=== PATIENT | female | born 1970 | race Caucasian/White ===

== ENCOUNTER 2021-04-25 21:16 | Emergency (ER) | payer MEDICAID, SELFPAY ==
--- NOTE | ~2021-04-25 | US_ITS ---
EXAMINATION: US PELVIS CLINICAL INFORMATION: Abnormal CT. COMPARISON: CT from 04/25/2021 TECHNIQUE: Ultrasound of the pelvis is performed using both transabdominal and transvaginal transducers along with Doppler. Transvaginal imaging is performed due to inadequate visualization transabdominally. FINDINGS: Uterus: The uterus is anteverted and measures 10 x 7 x 7.2 x 7.6 cm. Multiple nabothian cysts at the cervix. The double wall endometrial thickness is 2.2 mm. The uterus is smooth in contour and has normal myometrial echogenicity. Small fibroids are noted at the uterine body measuring up to 1.6 cm. Adnexa: Both ovaries are visualized. There is normal color flow to the adnexa. There is no ovarian torsion. There is no pelvic ascites or fluid collection. Normal arterial and venous spectral waveforms are present. Right ovary measures 4.2 x 2.4 x 3.2 cm. Small echogenic focus noted which represent calcification. Left ovary measures 9.1 x 4 x 4.5 cm. Multiple components are seen in the left ovary. There is a solid area which appears soft tissue echogenicity measuring 4.9 x 3 x 2.6 cm. This has Doppler vascularity. Multiple follicles present with dominant follicle measuring 2.4 cm. US/US pelvic and transvaginal IMPRESSION: Solid-appearing left adnexal mass measuring 4.9 cm. Recommend further evaluation with MRI.
--- NOTE | ~2021-04-25 | CT_ITS ---
EXAMINATION: CT ABDOMEN AND PELVIS WITHOUT CONTRAST CLINICAL INFORMATION: Abdominal pain. Rule out perforated viscus. COMPARISON: 05/28/2017 TECHNIQUE: Multidetector volumetric imaging was performed from the superior aspect of the liver through the pubic symphysis. Sagittal and coronal reformatted images were obtained on the technologist's workstation. This CT examination was performed using dose optimization techniques as appropriate, variously including the following: *Automated exposure control *Adjustment of mA and/or kV according to patient size (this includes techniques or standardized protocols for targeted exams where dose is matched to indication/reason for exam; i.e. extremities or head) *Use of iterative reconstruction technique DLP: 923 mGy-cm FINDINGS: LUNG BASES: The lung bases are clear. Mitral calcification noted. LIVER, GALLBLADDER, AND BILIARY TREE: The liver is enlarged measuring 22 cm CC. The liver is normal in shape and attenuation. No biliary ductal dilatation. Multiple calcifications throughout the liver. Numerous hepatic cysts are again noted.. Cholecystectomy. PANCREAS: Unremarkable. SPLEEN: Unremarkable. ADRENAL GLANDS: Unremarkable. KIDNEYS AND URETERS: The kidneys are surgically absent. BLADDER: Decompressed and not well evaluated. GASTROINTESTINAL TRACT: The stomach is unremarkable. Normal caliber small bowel. There is no obstruction. Normal appendix. No colonic wall thickening or inflammatory change. No free air or free fluid. ABDOMINAL WALL: Small fat-containing ventral abdominal wall hernia. Mild soft tissue thickening to the right of the hernia which is a change from the 2017 study, nonspecific. This is seen on series 3 image 41. LYMPH NODES: Normal. VASCULAR: Normal caliber aorta with minimal atherosclerotic calcification. PELVIC VISCERA: Anteverted uterus. Full appearance of the left adnexa. This is increased from the previous imaging. This area measures 5.9 x 3.2 cm. OSSEOUS STRUCTURES: No acute or suspicious osseous abnormality. CT/CT abdomen pelvis wo con IMPRESSION: 1. No acute finding in the abdomen or pelvis. No perforation. 2. Hepatomegaly. Multiple hepatic cysts again noted. 3. Fullness of the left adnexa, appears to be a change from previous imaging. This is nonspecific. Suggest further evaluation with pelvic ultrasound.
--- NOTE | ~2021-04-25 | US_ITS ---
EXAMINATION: US PELVIS CLINICAL INFORMATION: Abnormal CT. COMPARISON: CT from 04/25/2021 TECHNIQUE: Ultrasound of the pelvis is performed using both transabdominal and transvaginal transducers along with Doppler. Transvaginal imaging is performed due to inadequate visualization transabdominally. FINDINGS: Uterus: The uterus is anteverted and measures 10 x 7 x 7.2 x 7.6 cm. Multiple nabothian cysts at the cervix. The double wall endometrial thickness is 2.2 mm. The uterus is smooth in contour and has normal myometrial echogenicity. Small fibroids are noted at the uterine body measuring up to 1.6 cm. Adnexa: Both ovaries are visualized. There is normal color flow to the adnexa. There is no ovarian torsion. There is no pelvic ascites or fluid collection. Normal arterial and venous spectral waveforms are present. Right ovary measures 4.2 x 2.4 x 3.2 cm. Small echogenic focus noted which represent calcification. Left ovary measures 9.1 x 4 x 4.5 cm. Multiple components are seen in the left ovary. There is a solid area which appears soft tissue echogenicity measuring 4.9 x 3 x 2.6 cm. This has Doppler vascularity. Multiple follicles present with dominant follicle measuring 2.4 cm. US/US pelvic ovarian doppler IMPRESSION: Solid-appearing left adnexal mass measuring 4.9 cm. Recommend further evaluation with MRI.
[2021-04-25 21:23] VITALS: BP 108/62; PULSE 75; RESP 18; TEMP 36.5; O2SAT 95; BMI 40.1
[2021-04-25 22:10] VITALS: BP 113/64; PULSE 80; RESP 20; TEMP 36.8; O2SAT 98
--- NOTE | 2021-04-25 22:33 | ED_ITS ---
HPI - Abdominal Pain General Chief Complaint: Abdominal Pain Stated Complaint: abd pain vomiting Time Seen by Provider: 04/25/21 22:30 Source: patient and EMS Mode of arrival: EMS Limitations: no limitations History of Present Illness HPI narrative: 50-year-old female came in for evaluation of abdominal pain. This is a 50-year-old female end-stage renal disease on dialysis, patient received her full dialysis session this morning when home started to have abdominal pain started this morning, pain started as mild 2/10 then gradually start to become severe 10/10, pain is constant, described as a dull aching pain, localized to the whole entire abdomen more toward the middle, pain was associated with vomiting twice and diaphoresis. Patient had a normal bowel movement this morning before the pain started, able t o pass gas, no vaginal bleed. No worsening factor, no relieving factor. Never had that severe pain in the past. Patient do not make urine. Related Data Allergies Allergy/AdvReac Type Severity Reaction Status Date / Time sunflower seed Allergy Severe ANAPHYLAXIS Verified 04/25/21 23:41 [SUNFLOWER SEED] iron dextran complex Allergy Intermediate RASH Verified 04/25/21 23:41 [From INFED] TACHYCARDIA silver Allergy Intermediate RASH Verified 04/25/21 23:41 [From TEGADERM AG MESH] sulfamethoxazole Allergy Intermediate RASH Verified 04/25/21 23:41 [From BACTRIM] trimethoprim [From BACTRIM] Allergy Intermediate RASH Verified 04/25/21 23:41 ondansetron AdvReac Intermediate VOMIT Verified 04/25/21 23:41 [From ZOFRAN ( HYDROCHLORIDE)] BLUE CHEESE Allergy Severe ANAPHYLAXIS Uncoded 05/23/20 16:02 KOSOVAN CHEESE Allergy Severe ANAPHYLAXIS Uncoded 05/23/20 16:02 Review of Systems Review of Systems All other systems are reviewed and are negative Constitutional: Reports as per HPI and Reports no additional constitutional complaints Eyes: Reports as per HPI and Reports no additional eye complaints Reports system reviewed and no additional complaints, except as documented Cardiovascular: Reports as per HPI and Reports no additional cardiovascular complaints Respiratory: Reports as per HPI and Reports no additional respiratory complaints Gastrointestinal: Reports as per HPI and Reports no additional gastrointestinal complaints Genitourinary: Reports no additional female genitourinary complaints Musculoskeletal: Reports no additional musculoskeletal complaints Skin/Breast: Reports system reviewed and no additional complaints, except as docu Psychiatric: Reports no additional psychiatric complaints Endocrine: Reports no additional endocrine complaints Hematologic/Lymphatic: Reports no additional hematologic/lymphatic complaints Allergic/Immunologic: Reports no additional allergic/immunologic complaints Reports system reviewed and no additional complaints, except as documented and Reports Abnormal speech present Physical Exam Vital Signs: Vital Signs: Last Vital Signs Temp 98.3 F 04/25/21 22:10 Pulse 90 04/26/21 00:00 Resp 18 04/26/21 00:00 BP 113/64 04/25/21 22:10 Pulse Ox 100 04/26/21 00:00 Body Mass Index 40.1 Vital signs have been reviewed as appeared to be correct. Blood pressure normal. Heart rate normal. Respiration rate normal. Temperature normal. Oxygen saturation normal. Appearance: Alert. Oriented X3. No acute distress. Head: Normal external exam. Normocephalic. Atraumatic. No Rosales signs noted. No raccoon eyes noted Eyes: PERRLA. EOMI. Conjunctiva and sclera normal. Eyelids normal. ENT: TM's Normal. Pharynx normal. Uvula midline. Moist mucous membranes. No trismus noted. No drooling noted. No muffled voice noted. Neck: Normal inspection. Neck supple. FROM. No adenopathy. Thyroid Normal. No meningeal signs. No neck mass noted. CVS: Normal heart rate and rhythm. Heart sound normal. No murmurs noted. Pulses normal throughout. Respiratory: No respiratory distress. Painless inspiration. Breath sounds normal. No wheezes/rales/rhonchi noted. Chest nontender. No accessory muscle usage noted or decreased air movement noted. Abdomen: Soft, diffuse tenderness, no rebound tenderness, no guarding. Bowel sounds normal in all 4 quadrants. No distention noted. No organomegaly noted. No visible injury noted. Back: No CVA tenderness. Full range of motion noted. Skin: Skin warm and dry. Normal skin color. Normal skin turgor. No rashes/lesions/lacerations noted. Extremities: No lower extremity edema. Extremities exhibit normal range of motion. Extremities nontender. Neuro: Oriented X 3. Cranial nerve exam: II-XII are grossly intact No motor deficit. No sensory deficit. Reflexes normal. Course Course Course Narrative: Assessment and plan. 50-year-old female came in with abdominal pain, CT showed no acute intra- abdominal pathology to explain patient's pain except for left adnexal fullness, ultrasound showed left adnexal mass with no concern of ovarian torsion. Labs are unremarkable except for chronic renal failure. Patient's symptoms has improved. MDM - Abdominal Pain Lab Data Attestation: I reviewed the patient's lab results. Result diagrams: 04/25/21 22:52 04/25/21 22:52 Labs: Lab Results 04/25/21 04/25/21 04/25/21 Range/Units 22:52 22:52 22:52 WBC 7.5 (4.8-10.8) X10*3/uL RBC 4.02 L (4.20-5.50) X10*6/uL Hgb 10.9 L (12.0-16.0) g/dl Hct 34.8 L (37-47) % MCV 86.6 (80-98) fL MCH 27.1 (27.0-33.0) pg MCHC 31.3 (31.0-35.0) g/dl RDW 16.5 H (11.0-16.0) % Plt Count 152 L (160-400) X10*3/uL MPV 10.1 (9.4-12.3) fL Immature Gran % (Auto) 0.4 (0.0-0.4) % Neut % (Auto) 87.5 H (45-73) % Lymph % (Auto) 3.1 L (20-40) % [place] % (Auto) 8.4 (2-11) % Eos % (Auto) 0.5 (0-4) % Baso % (Auto) 0.1 (0-2) % Lymph # (Auto) 0.2 L (1.2-4.9) X10*3/uL [place] # (Auto) 0.6 (0.1-1.2) X10*3/uL Eos # (Auto) 0.0 (0.0-0.4) X10*3/uL Baso # (Auto) 0.0 (0.0-0.2) X10*3/uL Abs Immat Gran (auto) 0.03 (0.00-0.03) X10*3/uL Absolute Neuts (auto) 6.5 (2.0-8.3) X10*3/uL Absolute Nucleated RBC 0.000 (0.0-0.012) X10*3/uL Nucleated RBC % (auto) 0.0 (0.0-0.2) /100WBC Sodium 139 (135-145) mmol/L Potassium 4.5 (3.3-5.1) mmol/L Chloride 99 (96-108) mmol/L Carbon Dioxide 26 (22-29) mmol/L Anion Gap 19 (12-20) BUN 27 H (9-16) mg/dL Creatinine 7.61 H* (0.5-1.4) mg/dL Estim Creat Clear Calc 11.6 Estimated GFR 6 Random Glucose 115 (60-115) mg/dL Calcium 8.8 (8.4-10.2) mg/dL Total Bilirubin 0.7 (0.0-1.0) mg/dL Direct Bilirubin 0.2 (0.0-0.5) mg/dL AST 13 (5-31) U/L ALT 10 (0-31) U/L Alkaline Phosphatase 56 (39-117) U/L Total Protein 6.6 (6.5-8.0) g/dL Albumin 4.0 (3.5-5.0) g/dL Lipase 36 (8-78) U/L Imaging Data CT scan - abdomen: Radiologist's impression: 1. No acute finding in the abdomen or pelvis. No perforation. 2. Hepatomegaly. Multiple hepatic cysts again noted. 3. Fullness of the left adnexa, appears to be a change from previous imaging. This is nonspecific. Suggest further evaluation with pelvic ultrasound. Pelvic ultrasound: Radiologist's impression: Solid-appearing left adnexal mass measuring 4.9 cm. Recommend further evaluation with MRI. 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
[2021-04-25 23:01] LABS: Basophils Percent Auto 0.1 % (0-2); Eosinophils Percent Auto 0.5 % (0-4); Hematocrit 34.8 % (37-47); Hemoglobin 10.9 g/dl (12.0-16.0); Imm Gran Abs Auto 0.03 X10*3/uL (0.00-0.03); Imm Gran Pct Auto 0.4 % (0.0-0.4); Lymphocytes Absolute Auto 0.2 X10*3/uL (1.2-4.9); Lymphocytes Percent Auto 3.1 % (20-40); MANUAL DIFF FLAG NO; Mean Corpuscular HGB Conc 31.3 g/dl (31.0-35.0); Mean Corpuscular Hemoglobin 27.1 pg (27.0-33.0); Mean Corpuscular Volume 86.6 fL (80-98); Mean Platelet Volume 10.1 fL (9.4-12.3); Monocytes Absolute Auto 0.6 X10*3/uL (0.1-1.2); Monocytes Percent Auto 8.4 % (2-11); Neutrophils Absolute Auto 6.5 X10*3/uL (2.0-8.3); Neutrophils Percent Auto 87.5 % (45-73); Platelet Count 152 X10*3/uL (160-400); Red Blood Count 4.02 X10*6/uL (4.20-5.50); Red Cell Distribution Width 16.5 % (11.0-16.0); White Blood Count 7.5 X10*3/uL (4.8-10.8)
[2021-04-25] MEDS: Morphine Sulfate 2 MG/ML CARTRIDGE 1 MG IVPUSH (23:07)
[2021-04-25] MEDS: 0.9 % Sodium Chloride 1,000 ML 999 ML IVCONT (23:07)
[2021-04-25 23:24] LABS: Alanine Aminotransferase 10 U/L (0-31); Alkaline Phosphatase 56 U/L (39-117); Aspartate Amino Transferase 13 U/L (5-31); Bilirubin Direct 0.2 mg/dL (0.0-0.5); Bilirubin Total 0.7 mg/dL (0.0-1.0); Lipase 36 U/L (8-78); Total Protein 6.6 g/dL (6.5-8.0)
[2021-04-25 23:31] LABS: Anion Gap 19 (12-20); Blood Urea Nitrogen 27 mg/dL (9-16); Calcium 8.8 mg/dL (8.4-10.2); Carbon Dioxide 26 mmol/L (22-29); Chloride 99 mmol/L (96-108); Creatinine Clr Calc Pharmacy 11.6; Estimated Glomerular Filt Rate 6; Glucose Random 115 mg/dL (60-115); Potassium 4.5 mmol/L (3.3-5.1); Sodium 139 mmol/L (135-145)
--- NOTE | 2021-04-25 23:43 | PC.NURSE ---
Pt does not remember meds. attempted to do med rec via contact with [facility] pharmacy-no record of pt
[2021-04-26] VITALS: PULSE 90; RESP 18; O2SAT 100
[2021-04-26 02:00] VITALS: BP 141/77; PULSE 90; RESP 18; O2SAT 100
[2021-04-26] MEDS: Morphine Sulfate 2 MG/ML CARTRIDGE IVPUSH (02:15)
== END 2021-04-26 02:22 | disposition home or self-care (01) ==
PROVIDERS: Emergency Provider Emergency Medicine; PCP Internal Medicine
DX: R10.9 Unspecified abdominal pain (principal); N18.6 End stage renal disease; Z99.2 Dependence on renal dialysis; I48.91 Unspecified atrial fibrillation; N83.9 Noninflammatory disorder of ovary, fallopian tube and broad ligament, unspecified; K76.89 Other specified diseases of liver
CPT/HCPCS: 36415; 74176; 76830; 76856; 80048; 80076; 83690; 85025; 93975; 96361; 96374; 96376; 99284; J2270

== ENCOUNTER 2021-08-03 14:23 | Emergency (ER) | payer MEDICARE, MEDICAID, SELFPAY ==
[2021-08-03 14:38] VITALS: BP 144/84; PULSE 87; RESP 18; TEMP 36.7; O2SAT 96; BMI 39.1
== END 2021-08-03 16:49 | disposition left against medical advice (07) ==
PROVIDERS: Emergency Provider Emergency Medicine; PCP Internal Medicine
DX: J02.9 Acute pharyngitis, unspecified (principal)
CPT/HCPCS: 99282

== ENCOUNTER 2025-02-14 15:28 | Emergency (ER) | payer OTHER, SELFPAY ==
--- NOTE | 2025-02-14 | ECG_ITS ---
Test Reason : chest tightnes Blood Pressure : */* mmHG Vent. Rate : 90 BPM Atrial Rate : 90 BPM P-R Int : 158 ms QRS Dur : 84 ms QT Int : 398 ms P-R-T Axes : -2 5 48 degrees QTcB Int : 486 ms Normal sinus rhythm Prolonged QT Abnormal ECG When compared with ECG of 30-May-2017 06:55, Nonspecific T wave abnormality now evident in Lateral leads Referred By: Generic ED Physician Electronically Signed By: JUAN M ANTHONY MD
--- NOTE | ~2025-02-14 | CT_ITS ---
CLINICAL HISTORY: sob after dialysis --- Additional Notes or Special Instructions: esrd on dialysis CT angiography chest with contrast. 3D Postprocessing. Comparison: CR - XR CHEST 1V - 02/14/25 18:07 EDT Findings: Right IJ MediPort catheter tip is in the right atrium. Cardiomegaly with pericardial effusion measuring to 3.0 cm in thickness. Normal RV/LV ratio. Aortic and coronary atherosclerosis. Ascending aortic aneurysm measuring 4.1 x 3.8 cm. Dilated main pulmonary artery measuring 4.4 cm. No pulmonary embolus. The visualized thyroid is unremarkable. No enlarged mediastinal or hilar lymph nodes. Small bilateral pleural effusions. Bibasilar linear opacities most consistent with atelectasis. Mosaic attenuation of the lungs. Multiple hepatic hypodensities many of these are cysts and others are too small to characterize. Calcified granulomas in the right hepatic lobe. Chronic right posterior rib fractures. No acute fracture. IMPRESSION: 1. No pulmonary embolus. Dilated main pulmonary artery, this can be seen in pulmonary arterial hypertension. 2. Large pericardial effusion measuring up to 3.0 cm in thickness 3. Small bilateral pleural effusions with bibasilar atelectasis 4. Ascending aortic aneurysm measuring 4.1 x 3.8 cm This document has been electronically signed by: Marlon Kern MD on 02/14/2025 19:06:07
--- NOTE | ~2025-02-14 | XR_ITS ---
CLINICAL HISTORY: sob 1 view chest x-ray Comparison: None Findings: Bilateral lower lobe triangular opacities may be atelectasis or pneumonia. Small bilateral pleural effusions. Pulmonary vascular congestion. Cardiomegaly. Aortic atherosclerosis. No pneumothorax. Right IJ central venous catheter tip is at the cavoatrial junction. No acute fracture. IMPRESSION: 1. Bilateral lower lobe opacities, possibly representing pneumonia versus atelectasis, with small bilateral pleural effusions 2. Pulmonary vascular congestion with cardiomegaly This document has been electronically signed by: Marlon Kern MD on 02/14/2025 18:31:44
[2025-02-14 16:44] VITALS: BP 143/98; PULSE 88; RESP 20; TEMP 36.8; O2SAT 93; BMI 32.2
--- NOTE | 2025-02-14 16:52 | ED_ITS ---
HPI - General Adult General Chief complaint: General Medical Stated complaint: Heaviness in chest, dialysis earlier Time Seen by Provider: 02/14/25 17:51 History of Present Illness HPI narrative: Patient is a 54-year-old female with a history of end-stage renal disease. Just got dialyze today. Normally gets dialyzed on Wednesday. Patient went home subsequently felt sudden onset of chest tightness. Along with dizziness generalized malaise. Came to the ED. There is no diaphoresis. There is no fever no chills no cough no congestion. Does not make urine. Patient from home. Positive long history of hypertension. No history diabetes. No history of ID. Related Data Allergies Allergy/AdvReac Type Severity Reaction Status Date / Time sunflower seed Allergy Severe ANAPHYLAXIS Verified 02/14/25 16:45 [SUNFLOWER SEED] iron dextran complex Allergy Intermediate RASH Verified 02/14/25 16:45 [From INFED] TACHYCARDIA silver Allergy Intermediate RASH Verified 02/14/25 16:45 [From TEGADERM AG MESH] sulfamethoxazole Allergy Intermediate RASH Verified 02/14/25 16:45 [From BACTRIM] trimethoprim [From BACTRIM] Allergy Intermediate RASH Verified 02/14/25 16:45 ondansetron AdvReac Intermediate VOMIT Verified 02/14/25 16:45 [From ZOFRAN ( HYDROCHLORIDE)] BLUE CHEESE Allergy Severe ANAPHYLAXIS Uncoded 05/23/20 16:02 ESTONIAN CHEESE Allergy Severe ANAPHYLAXIS Uncoded 05/23/20 16:02 Review of Systems 2 Review of Systems: Positive shortness of breath positive chest pain Yes all other systems are reviewed and are negative PMFSH Past Medical History Attestation statement: The following information was validated with the patient. 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 Dialysis patient Afib Surgical History S/P CALENDER WIND UP TENDER shunt History of cholecystectomy H/O parathyroidectomy Social History Social History Unable to assess alcohol history related to: Unknown Alcohol intake: never Smoked in Last 30 Days: No Use of substances other than those prescribed or required for medical reasons: Unknown Advance Directives: No Advance Directives Information Provided: Yes Do you have a plan to hurt others: No Plan Physical Exam ED Vital Signs: Vital Signs - 24 hr 02/14/25 16:44 02/14/25 18:30 Temperature 98.3 F 97.7 F Pulse Rate 88 86 Respiratory Rate 20 16 Blood Pressure 143/98 H 151/91 H Pulse Oximetry 93 96 Oxygen Delivery Method Room Air Room Air BMI result Body Mass Index 32.2 Appearance: Alert. Oriented X3. No acute distress. Eyes: Pupils equal, round and reactive to light. ENT: Pharynx normal. Neck: Normal inspection. Neck supple. No lymph nodes noted. No crepitus CVS: Normal heart rate and rhythm. Pulses normal. Normal S1 and S2 Respiratory: No respiratory distress. Breath sounds normal. No Wheezing. No rales Abdomen: Soft and nontender. No rigidity. No distention. good BS x4 Skin: Skin warm and dry. Normal skin color. Normal skin turgor. Extremities: No lower extremity edema. Neurovascular intact to all extremities. No Lacerations. No Rash Neuro: Oriented X 3. No motor deficit. No sensory deficit. Moving all extermities. No slurred speech Course Course Course Narrative: RME: 54-year-old female presents to ED for shortness of breath, chest pain, back pain, and headache. Labs EKG ordered Medications Administered Discontinued Medications Generic Name Dose Route Start Last Admin Trade Name Freq PRN Reason Stop Dose Admin Iohexol 100 ml 02/14/25 18:39 02/14/25 18:39 Iohexol 350 Mg/Ml 100 Ml Infus..Btl IV 02/14/25 18:40 65 ml ONCE ONE Administration Medical Decision Making Medical Decision Making [facility] Narrative: Patient presented today with chest tightness. My interpretation of her EKG showed a sinus rhythm heart rate was 90 FL QRS QTC within normal limits. Sensation troponin was at about 100. I repeated the troponin about an hour later it was still about the same. Patient received a CT angio of the chest. The CT angio was negative for evidence for pulmonary emboli. There was no pneumonia. There is a large pericardial effusion. Patient will require echo in a.m.. Cardiology team consulted. Hospitalist team consulted. Hemodynamically stable. Patient to be admitted for further monitoring. Inflammatory markers ordered. Will admit for further evaluation Differential Diagnosis Differential Diagnoses: The differential diagnosis associated with the presentation includes ACS, PE, pneumonia, pericardial effusion Admission/Observation Consideration of admission/observation: Escalation of care including admission/observation considered Consult Healthcare Provider Management of the patient was discussed with: Hospitalist and Usability Architect (Cardiology) Lab Data MDM Lab Attestation statement: I reviewed the patient's lab results. 02/14/25 16:57 02/14/25 16:57 Labs: Lab Results 02/14/25 02/14/25 Range/Units 16:57 18:10 WBC 2.7 L (4.8-10.8) X10*3/uL RBC 3.70 L (4.20-5.50) X10*6/uL Hgb 10.0 L (12.0-16.0) g/dl Hct 32.0 L (37.0-47.0) % MCV 86.5 (80.0-98.0) fL MCH 27.0 (27.0-33.0) pg MCHC 31.3 (31.0-35.0) g/dl RDW 18.5 H (11.0-16.0) % Plt Count 151 L (160-400) X10*3/uL MPV 9.6 (9.4-12.3) fL Immature Gran % (Auto) Cancelled Neut % (Auto) Cancelled Lymph % (Auto) Cancelled [place] % (Auto) Cancelled Eos % (Auto) Cancelled Baso % (Auto) Cancelled Lymph # (Auto) Cancelled [place] # (Auto) Cancelled Eos # (Auto) Cancelled Baso # (Auto) Cancelled Abs Immat Gran (auto) Cancelled Absolute Neuts (auto) Cancelled Absolute Nucleated RBC 0.000 (0.0-0.012) X10*3/uL Nucleated RBC % (auto) 0.0 (0.0-0.2) /100WBC Neutrophils % (Manual) 68 (45-73) % Band Neutrophils % 0 L (3-5) % Lymphocytes % (Manual) 10 L (20-40) % Monocytes % (Manual) 16 H (2-11) % Eosinophils % (Manual) 4 (0-4) % Basophils % (Manual) 2 (0-2) % Abs Neuts (Manual) 1.8 L (2.0-8.3) X10*3/uL Lymphocytes # (Manual) 0.3 L (1.2-4.9) X10*3/uL Monocytes # (Manual) 0.4 (0.1-1.2) X10*3/uL Eosinophils # (Manual) 0.1 (0.0-0.4) X10*3/uL Basophils # (Manual) 0.1 (0.0-0.2) X10*3/uL Platelet Estimate NORMAL (NORMAL) Plt Morphology Comment NORMAL RBC Morphology NOTED Ovalocytes 1+ (5-14) /OIF Schistocytes 1+ (0-2) /OIF Smear Tech's Comments MANUAL DIFF Sodium 137 (135-145) mmol/L Potassium 4.0 (3.3-5.1) mmol/L Chloride 93 L (96-108) mmol/L Carbon Dioxide 36 H (22-29) mmol/L Anion Gap 12 (12-20) BUN 16 (9-16) mg/dL Creatinine 4.92 H* (0.5-1.4) mg/dL Estim Creat Clear Calc 14.8 Estimated GFR 9 Random Glucose 91 (60-115) mg/dL Calcium 8.8 (8.4-10.2) mg/dL Total Bilirubin 1.1 H (0.0-1.0) mg/dL AST 26 (5-31) U/L ALT 18 (0-31) U/L Alkaline Phosphatase 40 (39-117) U/L Total Creatine Kinase 83 (26-140) U/L Troponin I High Sens 117.9 H* 97.5 H* (<3.5-17.0) ng/L C-Reactive Protein 0.58 H (< or = 0.50) mg/dL B-Natriuretic Peptide 2679 H (<100) pg/mL Total Protein 6.3 L (6.5-8.0) g/dL Albumin 4.2 (3.5-5.0) g/dL Independent Interpretation I performed an independent interpretation of an: EKG (Please see above) and CT Scan (No gross pneumonia positive pericardial effusion) Radiology Impression Discussion of test interpretation with radiology: I have reviewed the radiologist's reading. Chronic Conditions Patient?s care impacted by: Hypertension End-stage renal disease Social Determinants Patient?s care significantly limited by Social Determinants of Health including: Problems related to primary support group Discharge Plan Discharge Clinical Impression: Acute pericardial effusion Patient Disposition: Admitted As Inpatient Print Language: Czech
[2025-02-14 17:05] LABS: Mean Corpuscular HGB Conc 31.3 g/dl (31.0-35.0); Mean Corpuscular Volume 86.5 fL (80.0-98.0); Mean Platelet Volume 9.6 fL (9.4-12.3); Platelet Count 151 X10*3/uL (160-400); Red Cell Distribution Width 18.5 % (11.0-16.0); White Blood Count 2.7 X10*3/uL (4.8-10.8)
[2025-02-14 17:23] LABS: B Type Natriuretic Peptide 2679 pg/mL (<100)
[2025-02-14 17:28] LABS: Alanine Aminotransferase 18 U/L (0-31); Albumin Level 4.2 g/dL (3.5-5.0); Alkaline Phosphatase 40 U/L (39-117); Anion Gap 12 (12-20); Aspartate Amino Transferase 26 U/L (5-31); Bilirubin Total 1.1 mg/dL (0.0-1.0); Blood Urea Nitrogen 16 mg/dL (9-16); Calcium 8.8 mg/dL (8.4-10.2); Carbon Dioxide 36 mmol/L (22-29); Chloride 93 mmol/L (96-108); Creatinine Clr Calc Pharmacy 14.8; Estimated Glomerular Filt Rate 9; Glucose Random 91 mg/dL (60-115); Sodium 137 mmol/L (135-145); Total Protein 6.3 g/dL (6.5-8.0); Troponin-I High Sensitivity 117.9 ng/L (<3.5-17.0)
[2025-02-14 17:31] LABS: SLIDE REVIEW MANUAL DIFF
[2025-02-14 17:37] LABS: Basophils Abs Manual 0.1 X10*3/uL (0.0-0.2); Basophils Percent Manual 2 % (0-2); Eosinophils Absolute Manual 0.1 X10*3/uL (0.0-0.4); Eosinophils Percent Manual 4 % (0-4); Lymphocytes Absolute Manual 0.3 X10*3/uL (1.2-4.9); Lymphocytes Percent Manual 10 % (20-40); Monocytes Absolute Manual 0.4 X10*3/uL (0.1-1.2); Monocytes Percent Manual 16 % (2-11); Neutrophils Percent Manual 68 % (45-73)
[2025-02-14 17:39] LABS: Ovalocytes 1+ (5-14) /OIF; RBC Morphology NOTED
[2025-02-14 17:40] LABS: Band Neutrophils Percent 0 % (3-5); Neutrophils Absolute Manual 1.8 X10*3/uL (2.0-8.3); Platelet Estimate NORMAL (NORMAL); Platelet Morphology Comment NORMAL; Schistocytes 1+ (0-2) /OIF
--- OUTSIDE RECORDS SUMMARY | 2025-02-14 18:23 | XMS_ITS | Encounter Summary ---
Author Organization [facility], Address [address] [place] [address] Phone Care Team Providers Care Grain Inspector Name Role Phone Chiara Adkins MD Primary Care Provid er Encounter Details Date Type Department Care Team (Late Contact Info) Description 06/19/2024 Documentation Only [facility] [address] [place] [id number] Giancarlo Webster PA Social History Tobacco Use Types Packs/Day Years Used Date Smoking Tobacco: Never Alcohol Use Standard Drinks/Week Comments Yes 0 (1 standard drink = 0.6 oz pure alcohol) Alcoholic Drinks/day: Occasional social drink Comments Unknown Sex and Gender Information Value Date Recorded Sex Assigned at Female 02/01/2020 10:13 AM EDT Legal Sex Female 4:32 PM EST Gender Identity Female 02/01/2020 10:13 AM EDT Sexual Orientation Straight 02/01/2020 10 :13 AM EDT documented as of this encounter Plan of Treatment Not on file documented as of this encounter Visit Diagnoses Not on filedocumented in this encounter Care Teams Grain Inspector Relationship Specialty Start Date End Date Chiara Adkins MD [id number] [place], [place] PCP - General 07/11/19 documented as of this encounter
[2025-02-14 18:30] VITALS: BP 151/91; PULSE 86; RESP 16; TEMP 36.5; O2SAT 96
[2025-02-14] MEDS: iohexoL 350 MG/ML 100 ML INFUS..BTL IV (18:39)
[2025-02-14 18:47] LABS: Troponin-I High Sensitivity 97.5 ng/L (<3.5-17.0)
[2025-02-14 20:10] LABS: C Reactive Protein 0.58 mg/dL (< or = 0.50)
--- NOTE | 2025-02-14 21:09 | ED.GENADULT ---
HPI - General Adult General Chief complaint: General Medical Stated complaint: Heaviness in chest, dialysis earlier Time Seen by Provider: 02/14/25 17:51 Related Data Home Medications ?Medication ?Instructions ?Recorded ?Confirmed calcitriol 0.5 mcg capsule 0.5 mcg PO 3XW 02/14/25 calcium acetate(phosphat bind) 667 1,334 mg PO TID 02/14/25 mg capsule carvedilol 3.125 mg tablet 3.125 mg PO BID 02/14/25 fluoxetine 10 mg tablet 5 mg PO DAILY 02/14/25 losartan 50 mg tablet 50 mg PO DAILY 02/14/25 montelukast 10 mg tablet 10 mg PO DAILY 02/14/25 omeprazole 20 mg capsule,delayed 20 mg PO DAILY 02/14/25 release prochlorperazine maleate 5 mg PO 02/14/25 tablet valsartan 40 mg tablet 40 mg PO BID 02/14/25 Allergies Allergy/AdvReac Type Severity Reaction Status Date / Time sunflower seed Allergy Severe ANAPHYLAXIS Verified 02/14/25 16:45 [SUNFLOWER SEED] iron dextran complex Allergy Intermediate RASH Verified 02/14/25 16:45 [From INFED] TACHYCARDIA silver Allergy Intermediate RASH Verified 02/14/25 16:45 [From TEGADERM AG MESH] sulfamethoxazole Allergy Intermediate RASH Verified 02/14/25 16:45 [From BACTRIM] trimethoprim [From BACTRIM] Allergy Intermediate RASH Verified 02/14/25 16:45 ondansetron AdvReac Intermediate VOMIT Verified 02/14/25 16:45 [From ZOFRAN ( HYDROCHLORIDE)] BLUE CHEESE Allergy Severe ANAPHYLAXIS Uncoded 05/23/20 16:02 TUVALUAN CHEESE Allergy Severe ANAPHYLAXIS Uncoded 05/23/20 16:02 [facility] Past Medical History 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 Dialysis patient Afib Surgical History S/P ARCHEOLOGIST shunt History of cholecystectomy H/O parathyroidectomy Social History Social History Unable to assess alcohol history related to: Unknown Alcohol intake: never Physical Exam ED Vital Signs: Vital Signs - 24 hr 02/14/25 16:44 02/14/25 18:30 Temperature 98.3 F 97.7 F Pulse Rate 88 86 Respiratory Rate 20 16 Blood Pressure 143/98 H 151/91 H Pulse Oximetry 93 96 Oxygen Delivery Method Room Air Room Air BMI result Body Mass Index 32.2 Medications Administered Discontinued Medications Generic Name Dose Route Start Last Admin Trade Name Freq PRN Reason Stop Dose Admin Iohexol 100 ml 02/14/25 18:39 02/14/25 18:39 Iohexol 350 Mg/Ml 100 Ml Infus..Btl IV 02/14/25 18:40 65 ml ONCE ONE Administration Medical Decision Making Lab Data 02/14/25 16:57 02/14/25 16:57 Labs: Lab Results 02/14/25 02/14/25 Range/Units 16:57 18:10 WBC 2.7 L (4.8-10.8) X10*3/uL RBC 3.70 L (4.20-5.50) X10*6/uL Hgb 10.0 L (12.0-16.0) g/dl Hct 32.0 L (37.0-47.0) % MCV 86.5 (80.0-98.0) fL MCH 27.0 (27.0-33.0) pg MCHC 31.3 (31.0-35.0) g/dl RDW 18.5 H (11.0-16.0) % Plt Count 151 L (160-400) X10*3/uL MPV 9.6 (9.4-12.3) fL Immature Gran % (Auto) Cancelled Neut % (Auto) Cancelled Lymph % (Auto) Cancelled Knott % (Auto) Cancelled Eos % (Auto) Cancelled Baso % (Auto) Cancelled Lymph # (Auto) Cancelled Knott # (Auto) Cancelled Eos # (Auto) Cancelled Baso # (Auto) Cancelled Abs Immat Gran (auto) Cancelled Absolute Neuts (auto) Cancelled Absolute Nucleated RBC 0.000 (0.0-0.012) X10*3/uL Nucleated RBC % (auto) 0.0 (0.0-0.2) /100WBC Neutrophils % (Manual) 68 (45-73) % Band Neutrophils % 0 L (3-5) % Lymphocytes % (Manual) 10 L (20-40) % Monocytes % (Manual) 16 H (2-11) % Eosinophils % (Manual) 4 (0-4) % Basophils % (Manual) 2 (0-2) % Abs Neuts (Manual) 1.8 L (2.0-8.3) X10*3/uL Lymphocytes # (Manual) 0.3 L (1.2-4.9) X10*3/uL Monocytes # (Manual) 0.4 (0.1-1.2) X10*3/uL Eosinophils # (Manual) 0.1 (0.0-0.4) X10*3/uL Basophils # (Manual) 0.1 (0.0-0.2) X10*3/uL Platelet Estimate NORMAL (NORMAL) Plt Morphology Comment NORMAL RBC Morphology NOTED Ovalocytes 1+ (5-14) /OIF Schistocytes 1+ (0-2) /OIF Smear Tech's Comments MANUAL DIFF Sodium 137 (135-145) mmol/L Potassium 4.0 (3.3-5.1) mmol/L Chloride 93 L (96-108) mmol/L Carbon Dioxide 36 H (22-29) mmol/L Anion Gap 12 (12-20) BUN 16 (9-16) mg/dL Creatinine 4.92 H* (0.5-1.4) mg/dL Estim Creat Clear Calc 14.8 Estimated GFR 9 Random Glucose 91 (60-115) mg/dL Calcium 8.8 (8.4-10.2) mg/dL Total Bilirubin 1.1 H (0.0-1.0) mg/dL AST 26 (5-31) U/L ALT 18 (0-31) U/L Alkaline Phosphatase 40 (39-117) U/L Total Creatine Kinase 83 (26-140) U/L Troponin I High Sens 117.9 H* 97.5 H* (<3.5-17.0) ng/L C-Reactive Protein 0.58 H (< or = 0.50) mg/dL B-Natriuretic Peptide 2679 H (<100) pg/mL Total Protein 6.3 L (6.5-8.0) g/dL Albumin 4.2 (3.5-5.0) g/dL Discharge Plan Discharge Clinical Impression: Acute pericardial effusion Patient Disposition: Admitted As Inpatient Print Language: Setswana
--- NOTE | 2025-02-14 21:17 | PHA.MEDREC ---
Addendum entered by Pita Padilla [facility] 02/14/25 22:19: reviewed Original Note: Pharmacy Consult ? Medication Reconciliation Pharmacy has completed the medication reconciliation. Spoke to patient to confirm med list. Patient had her RX bottles with her. Patient states she is no longer taking Losartan 50 mg. Patient confirmed she is taking Fluoxetine 10 mg daily, Carvedilol 6.25 mg (2x 3.125mg). Patient states she takes Calcitriol 0.5 mg daily, however last claim from 02/07/25 states 3X weekly. left on what claims has.
[2025-02-14 21:30] LABS: Erythrocyte Sedimentation Rate 8 MM/HR (0-20)
[2025-02-14 22:00] VITALS: O2SAT 95
[2025-02-14] MEDS: Aspirin 81 MG TAB.CHEW 324 MG PO (22:27)
--- NOTE | 2025-02-14 23:21 | PC.NURSE ---
Report given to Mireille PENA at [address] floor @ [phone], questions answered.
[2025-02-14 23:42] LABS: Influenza A PCR NEGATIVE (Negative); Influenza B PCR NEGATIVE (Negative); Resp Syncy Virus RNA Qual PCR NEGATIVE (Negative); SARS COV2 PCR INHOUSE NEGATIVE (Negative)
[2025-02-15 00:02] VITALS: BP 165/98; PULSE 90; RESP 19; TEMP 36.6; O2SAT 95
== END 2025-02-15 00:04 | disposition short-term general hospital (02) ==
PROVIDERS: Internal Medicine; Nurse Practitioner Family; Physician Assistant; Emergency Provider Emergency Medicine Emergency Medical Services; PCP Student in an Organized Health Care Education/Training Program
DX: I31.39 Other pericardial effusion (noninflammatory) (principal); R07.9 Chest pain, unspecified; Z03.818 Encounter for observation for suspected exposure to other biological agents ruled out; R06.02 Shortness of breath; I48.91 Unspecified atrial fibrillation; I12.0 Hypertensive chronic kidney disease with stage 5 chronic kidney disease or end stage renal disease; N18.6 End stage renal disease; Z99.2 Dependence on renal dialysis
CPT/HCPCS: 0241U; 36415; 71045; 71275; 80053; 82550; 83880; 84484; 85007; 85027; 85652; 86140; 93005; 99285; Q9967

== ENCOUNTER → 2025-02-14 15:32 | Outpatient (BNV) | payer OTHER, SELFPAY | PROVIDERS: PCP Student in an Organized Health Care Education/Training Program; Visit Provider Internal Medicine Cardiovascular Disease | DX: R94.31 Abnormal electrocardiogram [ECG] [EKG] (principal); R07.89 Other chest pain | CPT/HCPCS: 93010 ==

== ENCOUNTER → 2025-02-14 17:59 | Outpatient (BNV) | payer OTHER, SELFPAY | PROVIDERS: Emergency Provider Emergency Medicine Emergency Medical Services; PCP Student in an Organized Health Care Education/Training Program; Visit Provider Radiology Diagnostic Radiology | DX: I31.39 Other pericardial effusion (noninflammatory) (principal); J90 Pleural effusion, not elsewhere classified; J98.11 Atelectasis; I71.21 Aneurysm of the ascending aorta, without rupture; J81.0 Acute pulmonary edema; I51.7 Cardiomegaly; R91.8 Other nonspecific abnormal finding of lung field | CPT/HCPCS: 71045; 71275 ==